=== PATIENT | female | born 1945 | race Asian ===

== ENCOUNTER 2019-09-13 09:57 | Emergency (ER) | payer OTHER, MEDICAID ==
[~2019-09-13] VITALS: Ht 157.5 cm; Wt 55.3 kg
[2019-09-13 10:10] VITALS: Ht 157.5 cm; Wt 55.3 kg
[2019-09-13 13:04] VITALS: BP 139/70
== END 2019-09-13 13:04 | disposition home or self-care (01) ==
LOC: ED 09:57
DX: S01.112A Laceration without foreign body of left eyelid and periocular area, initial encounter (principal); S80.212A Abrasion, left knee, initial encounter; S09.8XXA Other specified injuries of head, initial encounter; I10 Essential (primary) hypertension; W17.89XA Other fall from one level to another, initial encounter; Y93.89 Activity, other specified; Y92.89 Other specified places as the place of occurrence of the external cause; Y99.8 Other external cause status